=== PATIENT | male | born 2000 | race Caucasian/White ===

== ENCOUNTER 2021-09-29 07:16 | Inpatient (IN) | payer MEDICAID, SELFPAY ==
[~2021-09-29] VITALS: Ht 195.6 cm; Wt 136.4 kg
[2021-09-29 08:05] LABS: HEMATOCRIT 44.8 % (42.0-52.0); HEMOGLOBIN 14.1 g/dl (13.5-17.5); MEAN CORPUSCULAR HEMOGLOBIN 26.8 pg (27.0-33.0); MEAN CORPUSCULAR HGB CONC 31.5 g/dl (32.0-36.5); MEAN CORPUSCULAR VOLUME 85.2 fl (80.0-96.0); PLATELET COUNT, AUTOMATED 264 10^3/uL (150-450); RED BLOOD COUNT 5.26 10^6/uL (4.30-6.10); WHITE BLOOD COUNT 8.6 10^3/uL (4.0-10.0)
[2021-09-29 08:40] LABS: ACETAMINOPHEN LEVEL < 2.0 UG/ML (10.0-30.0); ALBUMIN 3.1 GM/DL (3.2-5.2); ALT/SGPT 17 U/L (12-78); BILIRUBIN,DIRECT < 0.1 MG/DL (0.0-0.2); BILIRUBIN,TOTAL 0.4 MG/DL (0.2-1.0); BLOOD UREA NITROGEN 14 MG/DL (7-18); CALCIUM LEVEL 8.7 MG/DL (8.5-10.1); CARBON DIOXIDE LEVEL 27 MEQ/L (21-32); CHLORIDE LEVEL 112 MEQ/L (98-107); CREATININE FOR GFR 0.91 MG/DL (0.70-1.30); ETHYL ALCOHOL (ETHANOL) 0.003 % (0.000-0.010); GLOMERULAR FILTRATION RATE > 60.0 (>60); GLUCOSE, FASTING 88 MG/DL (70-100); POTASSIUM SERUM 4.2 MEQ/L (3.5-5.1); SALICYLATE LEVEL < 1.7 MG/DL (5.0-30.0); SODIUM LEVEL 145 MEQ/L (136-145); TOTAL PROTEIN 6.7 GM/DL (6.4-8.2)
[2021-09-29 08:46] LABS: RSV AMPLIFICATION NEGATIVE (NEGATIVE)
--- OUTSIDE RECORDS SUMMARY | 2021-09-29 09:47 | CCD ---
Author Author [facility] Address Unknown Phone Unavailable Support Name Relationship Address Phone UE Next Of Kin Unknown Unavailable Re-disclosure Warning The records that you are about to access may contain information from federally-assisted alcohol or drug abuse programs. If such information is present, then the following federally mandated warning applies: This information has been disclosed to you from records protected by federal confidentiality rules (42 CFR part 2). The federal rules prohibit you from making any further disclosure of this information unless further disclosure is expressly permitted by the written consent of the person to whom it pertains or as otherwise permitted by 42 CFR part 2. A general authorization for the release of medical or other information is NOT sufficient for this purpose. The Federal rules restrict any use of the information to criminally investigate or prosecute any alcohol or drug abuse patient.The records that you are about to access may contain highly sensitive health information, the redisclosure of which is protected by Article 27-F of the [facility] Public Health law. If you continue you may have access to information: Regarding HIV / AIDS; Provided by facilities licensed or operated by the [facility] Office of Mental Health; or Provided by the [facility] Office for People With Developmental Disabilities. If such information is present, then the following [facility] mandated warning applies: This information has been disclosed to you from confidential records which are protected by state law. State law prohibits you from making any further disclosure of this information without the specific written consent of the person to whom it pertains, or as otherwise permitted by law. Any unauthorized further disclosure in violation of state law may result in a fine or shelter sentence or both. A general authorization for the release of medical or other information is NOT sufficient authorization for further disc losure. Medications No Information Insurance Providers Payer name Policy type / Coverage type Policy ID Covered republican ID Covered republican's relationship to bush Policy Bush Plan Information SELF PAY ONLY [id number] Problems, Conditions, and Diagnoses No Information Surgeries/Procedures No Information Results No Information Social History No Information
[2021-09-29 10:03] LABS: AMPHETAMINES LEVEL URINE NEGATIVE (NEGATIVE); BARBITURATES URINE NEGATIVE (NEGATIVE); BENZODIAZEPINES URINE NEGATIVE (NEGATIVE); CANNABINOIDS URINE POSITIVE (NEGATIVE); COCAINE METABOLITE URINE NEGATIVE (NEGATIVE); METHADONE URINE NEGATIVE (NEGATIVE); OPIATES URINE NEGATIVE (NEGATIVE); PHENCYCLIDINE URINE NEGATIVE (NEGATIVE)
[2021-09-29] MEDS ORDERED: HOME MED LIST COMPLETE! XX SCH (11:45)
[2021-09-29] MEDS ORDERED: MOM 30ML SUSPENSION UDC PO PRN (22:45)
[2021-09-29] MEDS ORDERED: ACETAMINOPHEN TAB 650MG DOSE (2X325MG) PO PRN (22:45)
[2021-09-29] MEDS ORDERED: MAALOX 30 ML SUSP *UDC PO PRN (22:45)
--- OUTSIDE RECORDS SUMMARY | 2021-09-29 22:58 | CCD ---
Author Author [facility] Address Unknown Phone Unavailable Support Name Relationship [...] is protected by Article 27-F of the [facility] Public Health law. If you continue you may have access to information: Regarding HIV / AIDS; Provided by facilities licensed or operated by the [facility] Office of Mental Health; or Provided by the [facility] Office for People With Developmental Disabilities. If such information is present, then the following [facility] mandated warning applies: This information has been [...] law may result in a fine or snf sentence or both. A general authorization for the release of medical or other information is NOT sufficient authorization for further disc losure. Medications No Information Insurance Providers Payer name Policy type / Coverage type Policy ID Covered libertarian ID Covered libertarian's relationship to bush Policy Bush Plan Information [facility] MEDICAID [id number] SELF PAY ONLY [id number] Problems, Conditions, and Diagnoses No Information Surgeries/Procedures No Information Results No Information Social History No Information
[2021-09-30 00:02] VITALS: BP 129/76
[2021-09-30 06:53] VITALS: BP 144/89
[2021-09-30] MEDS: SERTRALINE HCL 50 MG TAB PO SCH (08:50)
[2021-09-30] MEDS ORDERED: INFLUENZA QUADRIVALENT PF VACCINE 0.5ML SYRINGE IM ONE (09:00)
--- NOTE | 2021-09-30 12:40 | MHHPEPDOC ---
General Date Of Admission: Sep 30, 2021 Legal Status: 9.37 Chief Complaint "I made a threat against myself while talking to a friend." History of Present Illness HISTORY OF THE PRESENT ILLNESS: Patient is a 21 -year-old , single, domiciled male who presents to the emergency room after he sent a text message to a friend, stating that he wasn't feeling well and [place]. Patient states that after he sent the text message he went to bed to "sleep it off" and his friend must have called the police, who came to this door and did a welfare check. Paulino reported that he also endorsed si to the police officers, who then brought him in. Patient reports he would not have gone through with the act of attempting suicide, as he has suicidal thoughts everyday and generally just has the thoughts and doesn't act on them. HE reports having si daily, denies si at this current interview and cfs on the unit. Paulino does report 3 prior psychiatric admission post overdose attempts but doesn't remember when or where they were Today, patient denies si. Psychiatric Review of Systems Depression (2 or more weeks): depressed mood, anhedonia (patient reports that he doesn't have pleasure with playing video games or watching movies he used to enjoy), feelings of excess/guilt ("all the time." ), feelings of worthlesness, decreased energy, difficulty concentrating, suicidal thoughts (daily, denies any currently ), other (indecisiveness) Kimberly (4 or more days of): denies Psychosis: denies PTSD: denies Anxiety: gen/non-specific anxiety, panic attacks (patient reports he generally overthinks ) Anxiety/ 6 months or more of: difficulty concentrating, muscle tension Past Psychiatric History Previous Psychiatric Diagnosis: depression social anxiety anxiety possibly bipolar disorder Previous Psychiatric Admissions: 3 previous multiple in [place] due to suicidal thoughts/gestures/attempts Suicide Attempts: 2 previous suicide attempts via overdose on medications Psychiatric Follow-up: reports he has been before but that he stops goingto follow up Psychiatric medications: depakote risperdal trazodone Patient does not remember what other medications he has been on in the past Patient signed AGUSTIN for mother who also is unsure what meidcatoins she has been on Past Medical History Medical Problems denies Head Injury: No Seizures: No Hospitalizations: No Surgeries: Yes (tonsillectomy, upper and lower endoscopy at age 13) Family Medical/Psychiatric HX Psychiatric Disorders: Yes ("a wide variety of illnesses, anything you can think of probably" - mother and father's side) Addiction: Yes (maternal and paternal (alcohol, meth, cocaine, crack)) Suicide Attemps/Completions: No Addiction History other (marijuana) Social History Childhood: Patient reports he was born and raised in [place]. He reports that he moved around the [facility] a lot but is unsure why. He reported that he has an older brother by same mother and father but that his father has been absent from his life since shortly after . "I only have like one memory of him." He states he attended various schools due to moving around a lot, was a good student, however, reports he didn't graduate due to his mental health beginning to decline. He reports he began internalizing his emotions and "locked myself away" at home, didn't leave the house much after leaving school. Since he dropped out of high school, patient has done "nothing." He moved around the , and then moved with his brother to [place] to stay with his friends. Abuse/Trauma: denies Current Living Situation: lives with brother and brother's friend and family Education: dropped out of high school in 12th grade Employment: some jobs but due to anxiety was unable to hold job Social Support: poor supports but considers mother a support Legal: n/a Marital: n/a Mental Status Examination General Appearance: disheveled, ds/not appear stated age (appars older), hospital scubs/clothing Build: overweight Demeanor: average Eye Contact: average Activity: average Behavior: cooperative Speech: clear Mood: depressed Affect: full, flat, congruent Thought Process: logical/linear Thought Content (Delusions): none reported, denies SI, HI, AVH (reports chronic si but denies any SI today) Thought Content (Other): none reported, appropriate Perception (Hallucinations): none reported Perception (Other): none reported Cognition (Impairment of): none reported Oriented: Awake, Alert, Oriented times three Insight: fair Judgment: Fair Psychosis: Denies Diagnoses major depressive disorder Generalized anxiety disorder cannabis use disorder panic disorder A-FIB/CHADSVASC A-FIB History Current/History of A-Fib/PAF?: No Current PO Anticoag Therapy: No Treatment Treatment ordered: NONE Assessment Paulino is a 21 year old, single, , domiciled male who presents after voicing SI to his friend over the phone. He reports that he has chronic Si (active and passive) "everyday" but has no plan/intent on acting on them. He reports that he has been depressed since high school and has numerous treatments at both inpatient and outpatient facilities, but does not remember where/when these treatments were. He also does not remember what medications he has been on in the past besides depakote and risperdal, states he believes he has been diagnosed with depression, anxiety and bipolar disorder. In today's session, patient is tearful, he reports that he is living with his brother and his brother's friend and his anxiety is so high that he is unable to get a job and therefore, cannot contribute to the household. He reports feeling guilty, hopeless/helpless, states he used to enjoy playing video games and watching mo vies but is no longer able to concentrate or find these activities pleasurable. He does report sleep and appetite are adequate, denies irritability or any manic or hypomanic symptoms. Due to patient's inability to remember past psychiatric history, mother was contacted, who was able to give some collateral as well as names of past inpatient facilities. Mother also states patient has "severe anxiety" and has had several jobs but can't keep them due to anxiety. She states at one point he had ah/vh but patient reports "that was a long time ago when I first started having mental health problems," Denies ah/vh in years. Pateint's testimony was not consistent with bipolar disorder so will start zoloft 50 mg po daily and hydroxyzine 25 mg po q8h prn anxiety. Discussed risk/benefits/side effects (common & rare). Pt encouraged to ask questions and educated that if signs of kimberly occur such as poor sleep, irritability, suicidal thoughts, etc to let staff know immediately, patient voices understanding and is in agreement with the treatment plan.. Due to patient's depression and suicidal thoughts, will continue inpatient stay and discharge when stable. management plan: Continue zoloft 50 mg po daily continue hydroxyzine 25 mg po q6hp anxiety Time spent coordinating treatment 60 minutes Initial Treatment Plan 1. Patient was admitted on a [9.39] status. 2. Complete history was obtained. 3. With patients permission, family will be contacted and database will be expanded. 4. Patients medication regimen will be reviewed and changed accordingly. 5. Patient will be provided with protected environment. 6. Patient will be treated with individual, group, and milieu therapies. 7. Patient will receive supportive psych-education. 8. Discharge planning will commence immediately. 9. Outpatient follow-up treatment will be strongly recommended. 10. The initial treatment plan will focus initially on: * Depression. * Risk for suicide. ESTIMATED LENGTH OF STAY: 3-5 DAYS. TIME SPENT COUNSELING AND COORDINATING INITIAL CARE: 60 minutes. Tobacco Cessation Screen If Patient is a Smoker no N/A-No Antipsychotics Vital Signs Vital Signs Date Time Temp Pulse Resp B/P (MAP) Pulse Ox O2 Delivery O2 Flow Rate FiO2 09/30/21 06:53 98.2 82 16 144/89 (107) 100 Room Air Medications No Active Prescriptions or Reported Meds Allergies Coded Allergies: No Known Allergies (Unverified , 09/29/21) SABINE SHARMA, PMHNP Sep 30, 2021 12:25
[2021-09-30 18:42] VITALS: BP 150/82
--- NOTE | 2021-09-30 20:11 | HPEPDOC ---
General Date of Admission Sep 29, 2021 at 22:44 Date of Service: Sep 30, 2021 Chief Complaint The patient is a 21-year-old male admitted with a reason for visit of Unspecified Depressive Disorder. Source: Patient History of Present Illness Patient is 21 years old male with past medical history of depression and anxiety presented to hospital with suicidal ideation. Patient stated that he is has been depressed for 8 years and for past year his depression became worse. . He reports feeling guilty, hopeless/helpless, states he used to enjoy playing video games and watching movies but is no longer able to concentrate or find these activities pleasurable. He does report sleep and appetite are adequate, denies irritability or any manic or hypomanic symptoms. Patient denied fever, chills, nausea, diarrhea or dysuria Home Medications No Active Prescriptions or Reported Meds Allergies Coded Allergies: No Known Allergies (Unverified , 09/29/21) Past Medical History Medical History Anxiety and depression Family History Patient stated that both parents are healthy Social History * Smoker: Denies Alcohol: Denies Drugs: marijuana A-FIB/CHADSVASC A-FIB History Current/History of A-Fib/PAF?: No Current PO Anticoag Therapy: No Review of Systems Constitutional: Denies: Chills Eyes: Denies: Pain Skin: Denies: Rash Pulmonary: Denies: Dyspnea Cardiovascular: Denies: Chest Pain Gastrointestinal: Denies: Nausea Genitourinary: Denies: Dysuria Hematologic: Denies: Bruising Endocrine: Denies: Polydipsia Musculoskeletal: Denies: Neck Pain Neurological: Denies: Weakness Psych: Reports: Depression; Denies: Mood Normal Physical Examination General Exam: Positive: Alert, Cooperative Eye Exam: Positive: PERRLA ENT Exam: Positive: Atraumatic Neck Exam: Negative: Supple Chest Exam: Positive: Clear to auscultation Heart Exam: Positive: Rate Normal Telemetry: Positive: No significant arrhythmia Abdomen Exam: Positive: Normal bowel sounds Extremity Exam: Negative: Clubbing Skin Exam: Positive: Nl turgor and temperature Neuro Exam: Positive: Normal Gait Psych Exam: Positive: Oriented x 3 Vital Signs Vital Signs Date Time Temp Pulse Resp B/P (MAP) Pulse Ox O2 Delivery O2 Flow Rate FiO2 09/30/21 18:42 97.9 65 16 150/82 (104) 09/30/21 06:53 100 Room Air Assessment/Plan Patient is 21 years old male with past medical history of depression and anxiety presented to hospital with suicidal ideation. Patient stated that he is has been depressed for 8 years and for past year his depression became worse. . He reports feeling guilty, hopeless/helpless, states he used to enjoy playing video games and watching movies but is no longer able to concentrate or find these activities pleasurable. He does report sleep and appetite are adequate, denies irritability or any manic or hypomanic symptoms. Patient denied fever, chills, nausea, diarrhea or dysuria Problems (1) Depression with suicidal ideation Status: Acute Problem Text: Defer treatment to psych team Plan / VTE VTE Prophylaxis Ordered?: No VTE Exclusion Mechanical Proph: Low Risk for VTE ONELIA GANDARA DO Sep 30, 2021 20:11
[2021-10-01 06:28] VITALS: BP 120/62
[2021-10-01] MEDS: SERTRALINE HCL 50 MG TAB PO SCH (09:43)
--- NOTE | 2021-10-01 11:56 | MHIPNPDOC ---
[facility] Progress Note Progress Note DATE OF SERVICE: 10/01/21 History of Present Illness HISTORY OF THE PRESENT ILLNESS: Patient is a 21 -year-old , single, domiciled male who presents to the emergency room after he sent a text message to a friend, stating that he wasn't feeling well and [place]. Patient states that after he sent the text message he went to bed to "sleep it off" and his friend must have called the police, who came to this door and did a welfare check. Paulino reported that he also endorsed si to the police officers, who then brought him in. Patient reports he would not have gone through with the act of attempting suicide, as he has suicidal thoughts everyday and generally just has the thoughts and doesn't act on them. HE reports having si daily, denies si at this current interview and cfs on the unit. Paulino does report 3 prior psychiatric admission post overdose attempts but doesn't remember when or where they were VITAL SIGNS: See below. CURRENT MEDICATIONS: See below. Mental Status Examination General Appearance: disheveled, ds/not appear stated age (appars older), hospital scrubs/clothing Build: overweight Demeanor: average Eye Contact: average Activity: average Behavior: cooperative Speech: clear Mood: "hernandez today" improving Affect: congruent with mood Thought Process: logical/linear Thought Content (Delusions): none reported, denies SI, HI, AVH (reports chronic si but denies any SI today) Thought Content (Other): none reported, appropriate Perception (Hallucinations): none reported Perception (Other): none reported Cognition (Impairment of): none reported Oriented: Awake, Alert, Oriented times three Insight: fair, improving Judgment: Fair Psychosis: Denies Diagnoses major depressive disorder Generalized anxiety disorder cannabis use disorder panic disorder ASSESSMENT: Im feeling a little hernandez today. In today's session, Paulino reports difficulty falling asleep and is unsure why. He stated that although he was aware of prn trazodone, he "wanted to fall asleep naturally." He states, "I slept an hour tops." Yesterday he reported to staff that zoloft was "messing with my appetite" and c/o nausea and dry heaving so it wad discontinued. Discussed with patient alternatives to taking zoloft and Paulino reported he wanted to continue taking zoloft and see if nausea improves. He declined a decreased dosage. Zoloft 50 mg po daily reordered. Encouraged patient to take with food, utilize prn Mylanta and drink fluids. Paulino was instructed to notify this typewriter repairer if he has any other side effects of if side effects worsen. Paulino reports fleeting si and cfs. He still reports anxiety 04/10 and depression /10 - aware of prn trazodone for insomnia and hydroxyzine for anxiety. Patient reports he is still going to groups. At this time, patient doesn't feel ready for discharge. Will continue with inpatient stay and further stabilization. MANAGEMENT PLAN: continue all medications Will discharge when stable TIME SPENT: 30 minutes. Vital Signs Vital Signs Date Time Temp Pulse Resp B/P (MAP) Pulse Ox O2 Delivery O2 Flow Rate FiO2 10/01/21 06:28 97.8 82 18 120/62 (81) 100 Room Air Current Medications Current Medications Medications (Trade) Dose Ordered Sig/Amauri Route PRN Reason Start Time Stop Time Status Last Admin Dose Admin Acetaminophen (Tylenol Tab) 650 mg Q6HP PRN PO HEADACHE or MILD DISCOMFORT 09/29/21 22:45 Al Hydrox/Mg Hydrox/Simethicone (Mylanta) 30 ml Q4HP PRN PO HEARTBURN/INDIGESTION 09/29/21 22:45 Home Med (Home Med List Complete!) ASDIRECTED XX 09/29/21 11:45 09/29/21 11:44 DC Hydroxyzine HCl (Atarax) 25 mg Q8HP PRN PO ANXIETY 09/29/21 22:45 Magnesium Hydroxide (Milk Of Magnesia) 30 ml DAILYPRN PRN PO CONSTIPATION 09/29/21 22:45 Sertraline HCl (Zoloft) 50 mg DAILY PO 09/30/21 09:00 09/30/21 08:50 Trazodone HCl (Desyrel) 50 mg QHSP PRN PO INSOMNIA 09/29/21 22:45 Allergies Coded Allergies: No Known Allergies (Unverified , 09/29/21) SABINE SHARMA, PMHNP Oct 01, 2021 09:27
[2021-10-01 17:42] VITALS: BP 147/78
[2021-10-02 06:31] VITALS: BP 131/56
[2021-10-02] MEDS: SERTRALINE HCL 50 MG TAB PO SCH (09:54)
[2021-10-02 18:32] VITALS: BP 142/84
[2021-10-02] MEDS: traZODone 50 MG TAB PO PRN (22:21)
[2021-10-03 07:32] VITALS: BP 141/72
--- NOTE | 2021-10-03 08:09 | MHIPNPDOC ---
[facility] Progress Note Progress Note DATE OF SERVICE: 10/02/21 History of Present Illness HISTORY OF THE PRESENT ILLNESS: Patient is a 21 -year-old , single, domiciled male who presents to the emergency room after he sent a text message to a friend, stating that he wasn't feeling well and [place]. Patient states that after he sent the text message he went to bed to "sleep it off" and his friend must have called the police, who came to this door and did a welfare check. Paulino reported that he also endorsed si to the police officers, who then brought him in. Patient reports he would not have gone through with the act of attempting suicide, as he has suicidal thoughts everyday and generally just has the thoughts and doesn't act on them. HE reports having si daily, denies si at this current interview and cfs on the unit. Paulino does report 3 prior psychiatric admission post overdose attempts but doesn't remember when or where they were VITAL SIGNS: See below. CURRENT MEDICATIONS: See below. Mental Status Examination General Appearance: disheveled, ds/not appear stated age (appars older), hospital scubs/clothing Build: overweight Demeanor: average Eye Contact: average Activity: average Behavior: cooperative Speech: clear Mood: "good" improving Affect: congruent with mood Thought Process: logical/linear Thought Content (Delusions): none reported, denies SI, HI, AVH (reports chronic si but denies any SI today) Thought Content (Other): none reported, appropriate Perception (Hallucinations): none reported Perception (Other): none reported Cognition (Impairment of): none reported Oriented: Awake, Alert, Oriented times three Insight: fair, improving Judgment: Fair Psychosis: Denies Diagnoses major depressive disorder Generalized anxiety disorder cannabis use disorder panic disorder ASSESSMENT: Pt reports he slept well but had difficulty falling asleep due to roommate falling asleep. He states that after he fell asleep he was able to sleep through the night. Mood is really good. Depression 6/10 compared to admission where depression was 9/10. Anxiety is 8/10 compared to 10/10 when he was admitted. He states he feels anxious about everything. Patient reports he has a history of panic attacks, states last panic attack was first night that he was admitted. He reports that when he has a panic attack he "freezes mentally and personally. He reports heart palpitation, sweating, and hyperventilation. He states he is able to tell when a panic attack is coming on. Patient notified of prn hydroxyzine for anxiety. Patient states that after discharge he plans on going back to brothers house who is supportive. However, he reports that his brother doesn't have a working phone but that his mother serves as a liaison between the two. Patient denies si but reports having si last night when he was trying to fall asleep- describes si as passive "I wish I could go to sleep and not wake up." Paulino states he has passive si more often than active si - contracts for safety on the unit. Pt has been active in the [facility], reports appetite is good and he has been oor attending to groups and social with peers. Denies avh Patient still depressed and having some Si so continues to need inpatient stabilization. MANAGEMENT PLAN: continue all medications Will discharge when stable TIME SPENT: 30 minutes. Vital Signs Vital Signs Date Time Temp Pulse Resp B/P (MAP) Pulse Ox O2 Delivery O2 Flow Rate FiO2 10/02/21 06:31 98.4 61 20 131/56 (81) 98 Room Air Current Medications Current Medications Medications (Trade) Dose Ordered Sig/Amauri Route PRN Reason Start Time Stop Time Status Last Admin Dose Admin Acetaminophen (Tylenol Tab) 650 mg Q6HP PRN PO HEADACHE or MILD DISCOMFORT 09/29/21 22:45 Al Hydrox/Mg Hydrox/Simethicone (Mylanta) 30 ml Q4HP PRN PO HEARTBURN/INDIGESTION 09/29/21 22:45 Home Med (Home Med List Complete!) ASDIRECTED XX 09/29/21 11:45 09/29/21 11:44 DC Hydroxyzine HCl (Atarax) 25 mg Q8HP PRN PO ANXIETY 09/29/21 22:45 Magnesium Hydroxide (Milk Of Magnesia) 30 ml DAILYPRN PRN PO CONSTIPATION 09/29/21 22:45 Sertraline HCl (Zoloft) 50 mg DAILY PO 09/30/21 09:00 10/01/21 15:12 DC 10/01/21 09:43 Trazodone HCl (Desyrel) 50 mg QHSP PRN PO INSOMNIA 09/29/21 22:45 Allergies Coded Allergies: No Known Allergies (Unverified , 09/29/21) SABINE SHARMA, [facility] Oct 02, 2021 08:38
[2021-10-03] MEDS: SERTRALINE HCL 50 MG TAB PO SCH (08:32)
--- NOTE | 2021-10-03 10:05 | MHIPNPDOC ---
[facility] Progress Note Progress Note DATE OF SERVICE: 10/03/21 HHISTORY OF THE PRESENT ILLNESS: Patient is a 21 -year-old , single, domiciled male who presents to the emergency room after he sent a text message t o a friend, stating that he wasn't feeling well and [place]. Patient states that after he sent the text message he went to bed to "sleep it off" and his friend must have called the police, who came to this door and did a welfare check. Paulino reported that he also endorsed si to the police officers, who then brought him in. Patient reports he would not have gone through with the act of attempting suicide, as he has suicidal thoughts everyday and generally just has the thoughts and doesn't act on them. HE reports having si daily, denies si at this current interview and cfs on the unit. Paulino does report 3 prior psychiatric admission post overdose attempts but doesn't remember when or where they were VITAL SIGNS: See below. CURRENT MEDICATIONS: See below. Mental Status Examination General Appearance: disheveled, ds/not appear stated age (appars older), hospital scubs/clothing Build: overweight Demeanor: average Eye Contact: average Activity: average Behavior: cooperative, somewhat anxious (rubbing arms and shaking legs) Speech: clear Mood: "good" improving, Affect: congruent with mood, smiles spontaneously Thought Process: logical/linear Thought Content (Delusions): none reported, denies SI, HI, AVH (reports chronic si but denies any SI today) Thought Content (Other): none reported, appropriate Perception (Hallucinations): none reported Perception (Other): none reported Cognition (Impairment of): none reported Oriented: Awake, Alert, Oriented times three Insight: fair, improving Judgment: Fair Psychosis: Denies Diagnoses major depressive disorder Generalized anxiety disorder cannabis use disorder panic disorder ASSESSMENT: In today's session, Paulino reports he is "doing alright." He appeared somewhat anxious, moving legs and rubbing arms - aware of prn hydroxyzine for anxiety. He states that the nausea is improving and he still feels some nausea when he wakes up but feels that after he eats breakfast the nausea subsides. Paulino states that his sleep has improved after taking the trazodone last night and that he was able to sleep through the night, although still reports some difficulty falling asleep. He continues to report both anxiety and depression as 6/10. He states he is nervous for discharge as he is unsure about how he will handle the stress, but is goal and future oriented, wants to eventually move to the [facility] and go to trade school. He denies current si/hi/ah/vh, states that last suicidal thought was 2 nights ago. MANAGEMENT PLAN: continue all medications probable discharge next week TIME SPENT: 30 minutes. Vital Signs Vital Signs Date Time Temp Pulse Resp B/P (MAP) Pulse Ox O2 Delivery O2 Flow Rate FiO2 10/03/21 07:32 97.3 51 18 141/72 (95) 96 Room Air Current Medications Current Medications Medications (Trade) Dose Ordered Sig/Amauri Route PRN Reason Start Time Stop Time Status Last Admin Dose Admin Acetaminophen (Tylenol Tab) 650 mg Q6HP PRN PO HEADACHE or MILD DISCOMFORT 09/29/21 22:45 Al Hydrox/Mg Hydrox/Simethicone (Mylanta) 30 ml Q4HP PRN PO HEARTBURN/INDIGESTION 09/29/21 22:45 Home Med (Home Med List Complete!) ASDIRECTED XX 09/29/21 11:45 09/29/21 11:44 DC Hydroxyzine HCl (Atarax) 25 mg Q8HP PRN PO ANXIETY 09/29/21 22:45 Magnesium Hydroxide (Milk Of Magnesia) 30 ml DAILYPRN PRN PO CONSTIPATION 09/29/21 22:45 Sertraline HCl (Zoloft) 50 mg DAILY PO 09/30/21 09:00 10/01/21 15:12 DC 10/01/21 09:43 Sertraline HCl (Zoloft) 50 mg DAILY PO 10/02/21 09:00 10/03/21 08:32 Trazodone HCl (Desyrel) 50 mg QHSP PRN PO INSOMNIA 09/29/21 22:45 10/02/21 22:21 Allergies Coded Allergies: No Known Allergies (Unverified , 09/29/21) SABINE SHARMA, PMHNP Oct 03, 2021 10:05
[2021-10-03 18:58] VITALS: BP 138/88
[2021-10-04] MEDS: hydrOXYzine 25 MG TAB PO PRN ×2 (00:40→21:51)
[2021-10-04] MEDS: traZODone 50 MG TAB PO PRN ×2 (00:40→22:26)
[2021-10-04 06:22] VITALS: BP 132/78
[2021-10-04] MEDS: SERTRALINE HCL 50 MG TAB PO SCH (09:36)
[2021-10-04 17:58] VITALS: BP 152/84
[2021-10-05 07:37] VITALS: BP 122/70
[2021-10-05] MEDS: SERTRALINE HCL 50 MG TAB PO SCH (08:04)
[2021-10-05 19:16] VITALS: BP 150/76
[2021-10-05] MEDS: traZODone 50 MG TAB PO PRN (21:59)
[2021-10-05] MEDS: hydrOXYzine 25 MG TAB PO PRN (21:59)
[2021-10-06 06:42] VITALS: BP 127/64
[2021-10-06] MEDS: SERTRALINE HCL 50 MG TAB PO SCH (08:06)
[2021-10-06] MEDS: hydrOXYzine 25 MG TAB PO PRN ×2 (09:12→23:02)
--- NOTE | 2021-10-06 10:14 | MHIPNPDOC ---
[facility] Progress Note Progress Note DATE OF SERVICE: 10/06/21 HHISTORY OF THE PRESENT ILLNESS: Patient is a 21 -year-old , single, domiciled male who presents to the emergency room after he sent a text message t o a friend, stating that he wasn't feeling well and [place]. Patient states that after he sent the text message he went to bed to "sleep it off" and his friend must have called the police, who came to this door and did a welfare check. Paulino reported that he also endorsed si to the police officers, who then brought him in. Patient reports he would not have gone through with the act of attempting suicide, as he has suicidal thoughts everyday and generally just has the thoughts and doesn't act on them. HE reports having si daily, denies si at this current interview and cfs on the unit. Paulino does report 3 prior psychiatric admission post overdose attempts but doesn't remember when or where they were VITAL SIGNS: See below. CURRENT MEDICATIONS: See below. Mental Status Examination General Appearance: disheveled, ds/not appear stated age (appars older), hospital scubs/clothing Build: overweight Demeanor: average Eye Contact: average Activity: average Behavior: calm, cooperative, engaged Speech: clear Mood: "really good" euthymic Affect: congruent with mood, smiles spontaneously Thought Process: logical/linear Thought Content (Delusions): none reported, denies SI, HI, AVH (reports chronic si but denies any SI today) Thought Content (Other): none reported, appropriate Perception (Hallucinations): none reported Perception (Other): none reported Cognition (Impairment of): none reported Oriented: Awake, Alert, Oriented times three Insight: good Judgment: good Psychosis: Denies Diagnoses major depressive disorder Generalized anxiety disorder cannabis use disorder ASSESSMENT: In todays session, Paulino reports that he is doing well today, denies si, states "I can't even remember the last time I had one." He also denies hi/ah /vh. He states he had a "great" weekend and has been social with peers in the [facility]. He report he has been utilizing prn trazodone and denies any issues with sleep at night. Upon admission, he initially complained of racing thoughts that caused him anxiety when he laid down to go to sleep, which subsequently caused him difficulties falling asleep. However, he reports he has been utilizing the prn hydroxyzine before bed along with the trazodone, which has subsided his racing thoughts. He rates depression as a 2/10. and anxiety as a 0/10 today with 10 being the worst anxiety/ depression he has ever had. He plans on returning to his brother's house until his mom comes and picks him ups to bring him to [place] with her. Will follow up with [facility] after d/c and accepted case management. MANAGEMENT PLAN: continue all medications d/c 10/07/21 TIME SPENT: 30 minutes. Vital Signs Vital Signs Date Time Temp Pulse Resp B/P (MAP) Pulse Ox O2 Delivery O2 Flow Rate FiO2 10/06/21 06:42 98.4 82 16 127/64 (85) 100 Room Air Current Medications Current Medications Medications (Trade) Dose Ordered Sig/Amauri Route PRN Reason Start Time Stop Time Status Last Admin Dose Admin Acetaminophen (Tylenol Tab) 650 mg Q6HP PRN PO HEADACHE or MILD DISCOMFORT 09/29/21 22:45 Al Hydrox/Mg Hydrox/Simethicone (Mylanta) 30 ml Q4HP PRN PO HEARTBURN/INDIGESTION 09/29/21 22:45 Home Med (Home Med List Complete!) ASDIRECTED XX 09/29/21 11:45 09/29/21 11:44 DC Hydroxyzine HCl (Atarax) 25 mg Q8HP PRN PO ANXIETY 09/29/21 22:45 10/05/21 21:59 Magnesium Hydroxide (Milk Of Magnesia) 30 ml DAILYPRN PRN PO CONSTIPATION 09/29/21 22:45 Sertraline HCl (Zoloft) 50 mg DAILY PO 09/30/21 09:00 10/01/21 15:12 DC 10/01/21 09:43 Sertraline HCl (Zoloft) 50 mg DAILY PO 10/02/21 09:00 10/06/21 08:06 Trazodone HCl (Desyrel) 50 mg QHSP PRN PO INSOMNIA 09/29/21 22:45 10/05/21 21:59 Allergies Coded Allergies: No Known Allergies (Unverified , 09/29/21) SABINE SHARMA, PMHNP Oct 06, 2021 08:30
[2021-10-06 16:19] VITALS: BP 144/81
[2021-10-06] MEDS: traZODone 50 MG TAB PO PRN (23:02)
[2021-10-07 06:54] VITALS: BP 121/71
[2021-10-07] MEDS: SERTRALINE HCL 50 MG TAB PO SCH (08:25)
--- NOTE | 2021-10-07 12:30 | MHIPNPDOC ---
[facility] Progress Note Progress Note DATE OF SERVICE: 10/07/21 HISTORY OF THE PRESENT ILLNESS: Patient is a 21 -year-old , single, domiciled male who presents to the emergency room after he sent a text message to a friend, stating that he wasn't feeling well and was [place]. Patient states that after he sent the text message he went to bed to "sleep it off" and his friend must have called the police, who came to this door and did a welfare check. Paulino reported that he also endorsed si to the police officers, who then brought him in. Patient reports he would not have gone through with the act of attempting suicide, as he has suicidal thoughts everyday and generally just has the thoughts and doesn't act on them. HE reports having si daily, denies si at this current interview and cfs on the unit. Paulino does report 3 prior psychiatric admission post overdose attempts but doesn't remember when or where they were VITAL SIGNS: See below. CURRENT MEDICATIONS: See below. Mental Status Examination General Appearance: disheveled, ds/not appear stated age (appars older), hospital scubs/clothing Build: overweight Demeanor: average Eye Contact: average Activity: average Behavior: calm, cooperative, engaged Speech: clear Mood: "really good" euthymic: depression 11/10 Affect: congruent with mood, smiles spontaneously Thought Process: logical/linear Thought Content (Delusions): none reported, denies SI, HI, AVH (reports chronic si but denies any SI today) Thought Content (Other): none reported, appropriate Perception (Hallucinations): none reported Perception (Other): none reported Cognition (Impairment of): none reported Oriented: Awake, Alert, Oriented times three Insight: good Judgment: good Psychosis: Denies Diagnoses major depressive disorder Generalized anxiety disorder cannabis use disorder ASSESSMENT: In todays session, Paulino reports that he is doing well today, denies si, states "he still hasn't had any suicidal thoughts since one of the first nights he got here. He also denies hi/ah/vh. Paulino is observed in the [place], socializing and engaging appropriately with peers, mood and affect bright. He reports he is still sleeping well utilizing prn trazodone and hydroxyzine, appetite god. Today, he continues to deny racing thoughts, reports both depression and anxiety are a 1/10. He states he is a little nervous for discharge, is unsure if he wants to continue to live with his brother in [place], [place] or go back home with his mother in [place]. He is requesting to stay tonight and discharge 10/08/21 MANAGEMENT PLAN: continue all medications d/c 10/08/21 TIME SPENT: 30 minutes. Vital Signs Vital Signs Date Time Temp Pulse Resp B/P (MAP) Pulse Ox O2 Delivery O2 Flow Rate FiO2 10/07/21 06:54 98.0 98 60 121/71 (88) 97 Room Air Laboratory Data [facility] Laboratory Tests 2 10/06/21 17:00: Coronavirus (COVID-19)(PCR) NEGATIVE Current Medications Current Medications Medications (Trade) Dose Ordered Sig/Amauri Route PRN Reason Start Time Stop Time Status Last Admin Dose Admin Acetaminophen (Tylenol Tab) 650 mg Q6HP PRN PO HEADACHE or MILD DISCOMFORT 09/29/21 22:45 Al Hydrox/Mg Hydrox/Simethicone (Mylanta) 30 ml Q4HP PRN PO HEARTBURN/INDIGESTION 09/29/21 22:45 Home Med (Home Med List Complete!) ASDIRECTED XX 09/29/21 11:45 09/29/21 11:44 DC Hydroxyzine HCl (Atarax) 25 mg Q8HP PRN PO ANXIETY 09/29/21 22:45 10/06/21 23:02 Magnesium Hydroxide (Milk Of Magnesia) 30 ml DAILYPRN PRN PO CONSTIPATION 09/29/21 22:45 Sertraline HCl (Zoloft) 50 mg DAILY PO 09/30/21 09:00 10/01/21 15:12 DC 10/01/21 09:43 Sertraline HCl (Zoloft) 50 mg DAILY PO 10/02/21 09:00 10/07/21 08:25 Trazodone HCl (Desyrel) 50 mg QHSP PRN PO INSOMNIA 09/29/21 22:45 10/06/21 23:02 Allergies Coded Allergies: No Known Allergies (Unverified , 09/29/21) SABINE SHARMA, PMHNP Oct 07, 2021 12:30
[2021-10-07 16:28] VITALS: BP 135/73
[2021-10-07] MEDS: hydrOXYzine 25 MG TAB PO PRN (20:37)
[2021-10-07] MEDS: traZODone 50 MG TAB PO PRN (23:09)
[2021-10-08 07:04] VITALS: BP 124/57
[2021-10-08] MEDS: SERTRALINE HCL 50 MG TAB PO SCH (08:17)
[2021-10-08] MEDS ORDERED: TRAZ-252 PO (08:34)
[2021-10-08] MEDS ORDERED: HYDR-3363 PO (08:34)
[2021-10-08] MEDS ORDERED: SERT50TA29 PO (08:34)
--- NOTE | 2021-10-08 10:12 | MHDSPDOC ---
[facility] Discharge Summary Discharge Summary DATE OF ADMISSION: Sep 29, 2021 at 22:44 DATE OF DISCHARGE: Oct 08, 2021 at 0951 DISCHARGE DIAGNOSES: 1. major depressive disorder 2. generalized anxiety disorder 3. cannabis use disorder HISTORY OF THE PRESENT ILLNESS: Patient is a 21 -year-old , single, domiciled male who presents to the emergency room after he sent a text message to a friend, stating that he wasn't feeling well and [place]. Patient states that after he sent the text message he went to bed to "sleep it off" and his friend must have called the police, who came to this door and did a welfare check. Paulino reported that he also endorsed si to the police officers, who then brought him in. Patient reports he would not have gone through with the act of attempting suicide, as he has suicidal thoughts everyday and generally just has the thoughts and doesn't act on them. HE reports having si daily, denies si at this current interview and cfs on the unit. Paulino does report 3 prior psychiatric admission post overdose attempts but doesn't remember when or where they were CONSULTANTS INVOLVED: see hospitalist H&P TREATMENT AND PROGRESS ON THE UNIT : Patient was admitted to the [facility] on a 9.39 legal status was afforded the following treatment modalities: 1) Individual Therapy 2) Group Therapy 3) Medication Management 4) Milieu Therapy 5) Safe Environment HOSPITAL COURSE: Patient was admitted to [facility] on a 9.39 legal status after voicing suicidal thoughts. Since admission, he was receptive and interested in trying pharmacological management for his depression, anxiety and sleep. He was started on zoloft 50 mg po daily, which he initially complained of nausea, and one episode of vomiting, but reported he wanted to continue the medications to see if side effects subsided and tolerability improved, which he reports did. He was also started on trazodone 50 mg po qhs prn sleep, which he has been using throughout his stay and hydroxyzine 25 mg po q6h prn, for anxiety, which he has been finding to be beneficial in conjunction with his trazodone at for sleep, as he reports anxious thoughts are what makes it difficult for him to fall sleep. Paulino reports he finds all of these his medications beneficial and tolerated them well. Mood, anxiety, and intrusive thoughts improved with treatment. Pt attended groups daily during stay, found them beneficial. He is observed in the [facility], social and engaging appropriately with peers. Pts symptoms improved with afforded treatment. On day of discharge, reported depression 1-2/1-, with 10 being worst depression he has ever had, anxiety 1- 2/10. He denied insomnia, SI/HI, hallucinations, delusions. Pt was discharged home with follow up at [facility] for pcp and [facility] for mental health follow up. Pt felt safe for discharge. DISCHARGE ASSESSMENT: In today's interview, patient is alert and oriented, pt.s dress is appropriate. Hygiene and grooming is well-kempt. Smiles on approach and is pleasant and engaged in the interview. He reports depression 1-2/10 and anxiety 2-3/10. He reports him and his brother have to be out of their current residence by 11/01/2020, which is what is causing him minmial anxiety. HE dnies suicidal and homicidal ideation, planning or intent. Denies and is not observed with kimberly, psychotic symptoms of delusions, bizarre thinking, obsessions, paranoia, ruminations illogical thoughts, flight of ideas or having poor insight and judgement. Reinforced with patient need to abstain from alcohol and drugs. At discharge, patient has normal mentation, declines further hospitalization on a voluntary status and meets criteria for discharge today. Discussed indications of medications, potential benefits and risks, alternatives (including no treatment) and questions were encouraged and answered. Patient encouraged to return to hospital if symptoms worsen or change and encouraged to call unit if he needs to speak to provider for questions regarding medications or care. Patient was receptive to receiving case management services and signed up here on the unit. He states they will help with his needs after discharge, including housing, which was what was causing his anxiety Spoke to aPulino's mother (Imelda) briefly on the phone who states that she has been in contact with Paulino throughout his stay. She states, "he says he is doing really good and seems to be doing much better." She expresses no concerns for Paulino's safety at this time related to treatment and discharge Mental Status Exam Paulino is 21 year old, single, domiciled, white male who is receptive to meeting with the interview. General Appearance: neat, clean, dressed in personal clothing, ds/not appear stated age (appars older), Build: overweight Demeanor: average Eye Contact: average Activity: average Behavior: calm, cooperative, engaged Speech: clear Mood: "really good" euthymic: depression 1-210, anxiety 2-310 Affect: congruent with mood, smiles spontaneously Thought Process: logical/linear Thought Content (Delusions): none reported, denies SI, HI, AVH (reports chronic si but denies any SI today) Thought Content (Other): none reported, appropriate Perception (Hallucinations): none reported Perception (Other): none reported Cognition (Impairment of): none reported Oriented: Awake, Alert, Oriented times three Insight: good Judgment: good Psychosis: Denies Suicide Risk Assessment: 1) Does the patient wish to be ? No 2) Since your admission, have you had any actual thought of killing yourself? passive SI (09/30), none since. 3) Since your admission, have you been thinking about how you might do this? No 4) Since your admission, have you had these thoughts and had some intention of acting on them? No 5) Since your admission, have you started to work out or worked out the details of how to kill yourself? No 5A) Do you intent to carry out this plan? No 6) Have you ever done anything, started anything, or prepared to do anything with any intent to ? No 6A) How long since your admission did you do any of these? 8 days MEDICATIONS ON DISCHARGE: -zoloft 50 mg daily - hydroxyzine 25 mg po bid prn anxiety - trazodone 50 mg po qhs prn insomnia PLAN/FOLLOWUP ARRANGEMENTS: [facility] - mental health [facility] - medical follow up The amount of time spent in the coordination of care for this patient was approximately 30 minutes. ETOH/Disorder Med Rx ETOH/DRUG DISORDER RX: N/A Vital Signs/I&Os Vital Signs Date Time Temp Pulse Resp B/P (MAP) Pulse Ox O2 Delivery O2 Flow Rate FiO2 10/08/21 07:04 97.9 70 16 124/57 (79) 98 Room Air Medications Scheduled Sertraline HCl (Sertraline HCl) 50 Mg Tablet, 50 MG PO DAILY for mood, #7 Scheduled PRN Hydroxyzine HCl (Hydroxyzine HCl) 25 Mg Tablet, 25 MG PO BIDP PRN for ANXIETY, #14 Trazodone HCl (Trazodone HCl) 50 Mg Tablet, 50 MG PO QHSP PRN for INSOMNIA, #7 Allergies Coded Allergies: No Known Allergies (Unverified , 09/29/21) SABINE SHARMA, [facility] Oct 08, 2021 10:12
== END 2021-10-08 10:55 | disposition home or self-care (01) | DRG 754 ==
LOC: M ED 07:16 → M ED INP 22:44 → M PSY 23:57
PROVIDERS: ADMIT Psychiatry & Neurology Psychiatry; ATTEND Psychiatry & Neurology Psychiatry
DX: F32.9 Major depressive disorder, single episode, unspecified (principal); R45.851 Suicidal ideations; F41.1 Generalized anxiety disorder; F12.10 Cannabis abuse, uncomplicated; Z91.51 Personal history of suicidal behavior

== ENCOUNTER 2021-11-19 06:11 | Inpatient (IN) | payer MEDICAID, OTHER ==
[~2021-11-19] VITALS: Ht 185.4 cm; Wt 120.0 kg
[~2021-11-19 06:11] MED LIST: HYDR-3363 PO; SERT50TA29 PO; TRAZ-252 PO
[2021-11-19 07:04] LABS: MEAN CORPUSCULAR HEMOGLOBIN 26.8 pg (27.0-33.0); MEAN CORPUSCULAR VOLUME 83.8 fl (80.0-96.0); PLATELET COUNT, AUTOMATED 355 10^3/uL (150-450); RED BLOOD COUNT 5.97 10^6/uL (4.30-6.10); WHITE BLOOD COUNT 11.1 10^3/uL (4.0-10.0)
[2021-11-19 07:41] LABS: AMPHETAMINES LEVEL URINE NEGATIVE (NEGATIVE); BARBITURATES URINE NEGATIVE (NEGATIVE); BENZODIAZEPINES URINE NEGATIVE (NEGATIVE); CANNABINOIDS URINE POSITIVE (NEGATIVE); COCAINE METABOLITE URINE NEGATIVE (NEGATIVE); METHADONE URINE NEGATIVE (NEGATIVE); OPIATES URINE NEGATIVE (NEGATIVE); PHENCYCLIDINE URINE NEGATIVE (NEGATIVE)
[2021-11-19 07:46] LABS: ACETAMINOPHEN LEVEL < 2.0 UG/ML (10.0-30.0); ALT/SGPT 31 U/L (12-78); BILIRUBIN,DIRECT 0.3 MG/DL (0.0-0.2); BILIRUBIN,TOTAL 0.9 MG/DL (0.2-1.0); BLOOD UREA NITROGEN 9 MG/DL (7-18); CALCIUM LEVEL 9.4 MG/DL (8.5-10.1); CARBON DIOXIDE LEVEL 27 MEQ/L (21-32); CHLORIDE LEVEL 108 MEQ/L (98-107); CREATININE FOR GFR 0.94 MG/DL (0.70-1.30); ETHYL ALCOHOL (ETHANOL) < 0.003 % (0.000-0.010); GLOMERULAR FILTRATION RATE > 60.0 (>60); GLUCOSE, FASTING 90 MG/DL (70-100); POTASSIUM SERUM 3.5 MEQ/L (3.5-5.1); SALICYLATE LEVEL < 1.7 MG/DL (5.0-30.0); SODIUM LEVEL 141 MEQ/L (136-145); TOTAL PROTEIN 8.2 GM/DL (6.4-8.2)
[2021-11-19] MEDS ORDERED: NICOTINE 14 MG/24 HR TRANSDERMAL TD SCH (09:00)
[2021-11-19] MEDS ORDERED: SERTRALINE HCL 50 MG TAB PO ONE (09:00)
[2021-11-19] MEDS ORDERED: SERTRALINE HCL 50 MG TAB PO SCH (09:00)
[2021-11-19] MEDS ORDERED: MOM 30ML SUSPENSION UDC PO PRN (14:05)
[2021-11-19] MEDS ORDERED: IBUPROFEN 400MG TAB PO PRN (14:05)
[2021-11-19] MEDS ORDERED: MAALOX 30 ML SUSP *UDC PO PRN (14:05)
[2021-11-19] MEDS ORDERED: diphenhydrAMINE 25MG CAP PO PRN (14:05)
[2021-11-19 16:44] VITALS: BP 142/100
[2021-11-20 06:50] VITALS: BP 152/77
[2021-11-20] MEDS ORDERED: INFLUENZA QUADRIVALENT PF VACCINE 0.5ML SYRINGE IM ONE (09:00)
[2021-11-20] MEDS ORDERED: traZODone 50 MG TAB PO PRN (12:05)
[2021-11-20 17:37] VITALS: BP 181/93
[2021-11-21 06:50] VITALS: BP 135/74
[2021-11-21] MEDS: VENLAFAXINE **XR** 37.5 MG CAPSULE PO SCH (08:58)
[2021-11-21 16:03] VITALS: BP 124/61
[2021-11-22 06:40] VITALS: BP 120/79
[2021-11-22 08:52] VITALS: BP 120/79
[2021-11-22] MEDS: VENLAFAXINE **XR** 37.5 MG CAPSULE PO SCH (09:29)
[2021-11-22 17:44] VITALS: BP 128/68
[2021-11-23 06:35] VITALS: BP 111/68
[2021-11-23] MEDS: VENLAFAXINE **XR** 75MG CAPSULE PO SCH (09:50)
[2021-11-23 10:32] LABS: CHOLESTEROL RISK RATIO 3.5 (<5)
[2021-11-23 16:38] VITALS: BP 132/72
[2021-11-23] MEDS: traZODone 100 MG TAB PO PRN (23:29)
[2021-11-24 06:23] VITALS: BP 135/73
[2021-11-24] MEDS: VENLAFAXINE **XR** 75MG CAPSULE PO SCH (09:35)
[2021-11-24] MEDS: busPIRone 10 MG TAB PO SCH ×3 (11:37→21:29)
[2021-11-24] MEDS: OMEGA-3 1000MG CAPSULE PO SCH ×2 (12:32→21:29)
[2021-11-24 17:54] VITALS: BP 137/78
[2021-11-24] MEDS: traZODone 100 MG TAB PO PRN (23:29)
[2021-11-25 06:24] VITALS: BP 123/60
[2021-11-25] MEDS: OMEGA-3 1000MG CAPSULE PO SCH ×2 (09:28→21:38)
[2021-11-25] MEDS: busPIRone 10 MG TAB PO SCH ×3 (09:29→21:38)
[2021-11-25] MEDS: VENLAFAXINE **XR** 75MG CAPSULE PO SCH (09:29)
[2021-11-25 19:01] VITALS: BP 158/78
[2021-11-25] MEDS: traZODone 100 MG TAB PO PRN (21:38)
[2021-11-26 06:19] VITALS: BP 136/62
[2021-11-26] MEDS ORDERED: BUSP10TA PO (08:48)
[2021-11-26] MEDS ORDERED: FISH1CAP26 PO (08:48)
[2021-11-26] MEDS ORDERED: TRAZ-257 PO (08:48)
[2021-11-26] MEDS ORDERED: VENL75CA47 PO (08:48)
[2021-11-26] MEDS: VENLAFAXINE **XR** 75MG CAPSULE PO SCH (09:57)
[2021-11-26] MEDS: busPIRone 10 MG TAB PO SCH (09:57)
[2021-11-26] MEDS: OMEGA-3 1000MG CAPSULE PO SCH (09:57)
== END 2021-11-26 12:52 | disposition home or self-care (01) | DRG 754 ==
LOC: M ED 06:11 → M ED INP 14:01 → M PSY 16:20
PROVIDERS: ADMIT Student in an Organized Health Care Education/Training Program; ATTEND Student in an Organized Health Care Education/Training Program
DX: F32.9 Major depressive disorder, single episode, unspecified (principal); U07.1 COVID-19; R45.851 Suicidal ideations; F41.1 Generalized anxiety disorder; F12.188 Cannabis abuse with other cannabis-induced disorder; F41.0 Panic disorder [episodic paroxysmal anxiety]; Z91.51 Personal history of suicidal behavior; Z79.899 Other long term (current) drug therapy; F60.89 Other specific personality disorders